=== PATIENT | female | born 1980 | race Caucasian/White ===

== ENCOUNTER 2022-04-17 20:58 | Emergency (ER) | payer OTHER ==
[~2022-04-17] VITALS: Ht 170.2 cm; Wt 86.2 kg
[2022-04-17 22:16] LABS: Influenza B, PCR NEGATIVE (NEGATIVE); Resp Syncytial Virus, PCR NEGATIVE (NEGATIVE); SARS-Cov-2 (COVID-19) PCR, MMC NEGATIVE (NEGATIVE)
[2022-04-17 22:45] LABS: Influenza A, PCR POSITIVE (NEGATIVE)
== END 2022-04-18 00:16 | disposition home or self-care (01) ==
LOC: ER 20:58
PROVIDERS: Student in an Organized Health Care Education/Training Program
DX: J10.1 Influenza due to other identified influenza virus with other respiratory manifestations (principal); Z20.822 Contact with and (suspected) exposure to COVID-19; Z88.8 Allergy status to other drugs, medicaments and biological substances
CPT/HCPCS: 0241U; A9270; J1885; J2405; J7030